=== PATIENT | female | born 1945 | race Caucasian/White ===

== ENCOUNTER 2020-11-26 10:12 | Outpatient (CLI) | payer MEDICARE ==
--- NOTE | 2020-11-26 11:00 | CT ---
EXAM: CT chest without contrast PROVIDED CLINICAL HISTORY: Personal history of nicotine dependence, low dose screening COMPARISON: None FINDINGS: The heart, pericardium and great vessels are suboptimally evaluated in the absence of IV contrast mat erial. Vascular calcification including coronary calcium is demonstrated. There is a 2.4 cm left thyroid lobe nodule. There are conspicuous by number but not pathologically enlarged mediastinal lymph nodes. There is no evidence for axillary lymph node enlargement. Evaluation for hilar adenopathy is limited in the absence of IV contrast, without gross abnormality. Emphysematous changes are seen involving the lung apices. Bilateral apical pleural-parenchymal scarri ng-type changes are seen. There is no evidence for a concerning nodule. The airway appears patent and of normal caliber. There is no pleural fluid or pneumothorax apparent. There is a 1.3 cm circumscribed hypodense focus within the right hepatic lobe, incompletely character ized in the absence of IV contrast material, statistically a cyst or hemangioma. The osseous structures demonstrate no concerning lytic or blastic lesions. IMPRESSION: 1. Lung RADS category 1-negative. Continue annual screening. 2. Right hepatic lobe hypodensity, incompletely characterized but statistically benign. Consider righ t upper quadrant ultrasound as indicated. 3. Conspicuous by number but not pathologically enlarged mediastinal lymph nodes, nonspecific. 4. Vascular calcification including coronary calcium.
== END 2020-11-26 10:13 | disposition home or self-care (01) ==
LOC: BICCT 10:12
PROVIDERS: ATTEND Family Medicine
DX: Z12.2 Encounter for screening for malignant neoplasm of respiratory organs (principal); Z87.891 Personal history of nicotine dependence; I25.10 Atherosclerotic heart disease of native coronary artery without angina pectoris; K76.89 Other specified diseases of liver
CPT/HCPCS: 71271

== ENCOUNTER 2021-12-02 08:56 | Outpatient (CLI) | payer MEDICARE | END 2021-12-02 08:57 | disposition home or self-care (01) | LOC: RAD 08:56 | PROVIDERS: ATTEND Internal Medicine Critical Care Medicine | DX: J44.9 Chronic obstructive pulmonary disease, unspecified (principal) | CPT/HCPCS: 71046 ==

== ENCOUNTER 2022-04-07 11:29 | Outpatient (CLI) | payer MEDICARE | END 2022-04-07 11:30 | disposition home or self-care (01) | LOC: RAD 11:29 | PROVIDERS: ATTEND Internal Medicine Critical Care Medicine | DX: R06.00 Dyspnea, unspecified (principal) | CPT/HCPCS: 71046 ==

== ENCOUNTER 2023-01-02 10:24 | Outpatient (CLI) | payer MEDICARE | END 2023-01-02 10:25 | disposition home or self-care (01) | LOC: RAD 10:24 | PROVIDERS: ATTEND Internal Medicine Critical Care Medicine | DX: R06.00 Dyspnea, unspecified (principal) | CPT/HCPCS: 71046 ==